=== PATIENT | female | born 1995 | race Caucasian/White ===

== ENCOUNTER 2017-09-15 07:11 | Day surgery (SDC) | payer OTHER, SELFPAY ==
[2017-09-15] VITALS (7 sets, daily range): BP systolic 118–137; BP diastolic 65–86; PULSE 60–72; RESP 14–18; TEMP 36.3–36.6; O2SAT 93–99; BMI 38.5
[2017-09-15 07:44] LABS: Internal QC Validated? YES +Cl - CLEAR BKGD; Pregnancy, Urine Negative Negative
--- NOTE | 2017-09-15 08:28 | DCINST_ITS ---
Discharge Diet: No Restrictions Discharge Activity: Return to Normal Activity, May not drive while taking narcotic pain medications., May Shower, Use Crutches May shower in (days): 2 Ice area for (Minutes): 20 Keep extremity elevated above heart level: Right Leg Additional Activity Instructions:: Activity as tolerated at this time. Range of motion as tolerated and crutches for comfort. Call your doctor if your incision/area has: Continuous Slow Oozing, Sudden Increased Bleeding, Increased Pain/ Swelling, Increased Redness, Foul Smelling Discharge, Swelling at the incision site Call your doctor if you observe: Fever of 101 or Higher, Coldness, Increased Pain, Numbness or Tingling, Change in Color, Inability to urinate, Inability to have a bowel movement, Using more than one pad per hour, Shortness of breath, Dizziness, Fainting spells, Swelling in the ankles, Chest pain, Prolonged hiccoughing, Increased palpitations (irregular heartbeat), Calf discomfort, Uncontrolled pain Suture Line Care: Avoid Pulling/Pushing, Avoid Pinching/Bending Change Dressing in (Days):: 2 Remove Dressing in (days):: 2 Cleanse incision/area with: Soap & Water Additional Dressing/Incision Instructions:: Replace dressing after showering. Wash hands prior to touching wounds. Allergies/Adverse Reactions: Allergies No Known Allergies Allergy (Verified 09/09/17 12:53) Medications to take at Discharge metformin 500 mg tablet 500 mg PO BID 07/22/17 sertraline 25 mg tablet 75 mg PO QHS 07/22/17 Docusate Sodium [Colace] 100 mg PO BID PRN PRN #10 cap 09/15/17 Hydrocodone Bitart/Apap 5-325 [Langeloth 5/325] 1 - 2 tablet PO Q6H PRN PRN #60 tablet 09/15/17 proMETHazine tablet [Phenergan] 25 mg PO Q4H PRN PRN #10 tab 09/15/17 The following prescriptions were given: proMETHazine tablet [Phenergan] 25 mg PO Q4H PRN PRN #10 tab PRN Reason: Nausea Hydrocodone Bitart/Apap 5-325 [Langeloth 5/325] 1 - 2 tablet PO Q6H PRN PRN #60 tablet PRN Reason: Pain Docusate Sodium [Colace] 100 mg PO BID PRN PRN #10 cap PRN Reason: Constipation Primary Care Physician: Christina Millan [Primary Care Provider] - Please Follow Up With: Anthony Cage DO When: call [facility] for appt for 2 weeks Proposed Discharge Date: 09/15/17
--- NOTE | 2017-09-15 08:30 | OP.PN_ITS ---
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
[2017-09-15] MEDS: Cefazolin 2 GM in 0.9% Normal Saline 100 ML IV (09:01)
--- NOTE | 2017-09-15 09:55 | PCM.OPRPT ---
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 Having failed conservative measures to include NSAIDs activity modifications physical therapy and injections patient elected for operative intervention. Patient was counseled consented for the aforementioned procedure. She was met in the holding area with a right lower extremity was marked and identified by the orthopedic surgeon. Patient was taken to the operating room in satisfactory condition where a timeout took place to place to identify patient up procedure limb. Patient received 2 g of Ancef. She had a well-placed tourniquet right proximal thigh. She was then prepped and draped in usual fashion. Right lower extremity was elevated Esmarch used for exsanguination and tourniquet was increased to 250 mmHg for roughly 18 minutes. Anterolateral portal was established we entered the intra-articular space. There was no return effusion. Patient had no loose bodies to the suprapatellar pouch. Her patella was otherwise pristine. She had no chondromalacia to the trochlea. Removed the lateral gutter there was no loose bodies and normal popliteal hiatus. Then moved in the medial compartment established anteromedial portal. Medial compartment showed no meniscal pathology and a normal flanked sign. Patient had good firm cartilage upon probing. Central compartment showed the ACL and PCL are present be pristine. The leg was then brought in a [id number] position in the lateral compartment evaluated. She had no chondral injury identified. She did have a radial tear at the 9 o'clock position to her partial discoid meniscus. It was subsequent mechanically debrided using a shaver and meniscal biters to a stable rim. Minimal saucerization was required based on her meniscus variant. At that point time the scope was retracted portal sites were closed with 3-0 nylon she was then injected with 30 cc of Marcaine solution at 0.25% without epinephrine around the portal sites. She was then dressed in usual fashion to include Xeroform 4 x 4's Kerlix roll ABDs and Mark wrap. Tourniquet was let down after roughly 18 minutes. I was called available time during our procedure. We had no drains or complications and no implants. Patient will follow the knee arthroscopy protocol from [facility] [place]. Patient will follow-up in 2 weeks. Any major issues return. 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
[2017-09-15] MEDS: Ketorolac 30 MG/ML Syringe IV (09:56)
--- NOTE | 2017-09-15 09:58 | OP.PCM_ITS ---
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 Having failed conservative measures to include NSAIDs activity modifications physical therapy and injections patient elected for operative intervention. Patient was counseled consented for the aforementioned procedure. She was met in the holding area with a right lower extremity was marked and identified by the orthopedic surgeon. Patient was taken to the operating room in satisfactory condition where a timeout took place to place to identify patient up procedure limb. Patient received 2 g of Ancef. She had a well-placed tourniquet right proximal thigh. She was then prepped and draped in usual fashion. Right lower extremity was elevated Esmarch used for exsanguination and tourniquet was increased to 250 mmHg for roughly 18 minutes. Anterolateral portal was established we entered the intra-articular space. There was no return effusion. Patient had no loose bodies to the suprapatellar pouch. Her patella was otherwise pristine. She had no chondromalacia to the trochlea. Removed the lateral gutter there was no loose bodies and normal popliteal hiatus. Then moved in the medial compartment established anteromedial portal. Medial compartment showed no meniscal pathology and a normal flanked sign. Patient had good firm cartilage upon probing. Central compartment showed the ACL and PCL are present be pristine. The leg was then brought in a [id number] position in the lateral compartment evaluated. She had no chondral injury identified. She did have a radial tear at the 9 o'clock position to her partial discoid meniscus. It was subsequent mechanically debrided using a shaver and meniscal biters to a stable rim. Minimal saucerization was required based on her meniscus variant. At that point time the scope was retracted portal sites were closed with 3-0 nylon she was then injected with 30 cc of Marcaine solution at 0.25% without epinephrine around the portal sites. She was then dressed in usual fashion to include Xeroform 4 x 4's Kerlix roll ABDs and Mark wrap. Tourniquet was let down after roughly 18 minutes. I was called available time during our procedure. We had no drains or complications and no implants. Patient will follow the [facility] arthroscopy protocol from [facility]. Patient will follow-up in 2 weeks. Any major issues return. 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
[2017-09-15] MEDS: HYDROcodone Bitartrate/Apap 5/325 Tablet PO (11:13)
== END 2017-09-15 11:59 | disposition home or self-care (01) ==
LOC: SDC 07:13 → AC 07:14
PROVIDERS: Anesthesiology; Family Provider Specialist; PCP Specialist; Visit Provider Orthopaedic Surgery
PROC: (CPT 29870; principal; 2017-09-15 08:30)
DX: S83.281A Other tear of lateral meniscus, current injury, right knee, initial encounter (principal); W01.0XXA Fall on same level from slipping, tripping and stumbling without subsequent striking against object, initial encounter; Y93.9 Activity, unspecified; Y92.9 Unspecified place or not applicable; F32.9 Major depressive disorder, single episode, unspecified; E28.2 Polycystic ovarian syndrome; Z79.899 Other long term (current) drug therapy; Z79.84 Long term (current) use of oral hypoglycemic drugs; G47.30 Sleep apnea, unspecified; Q68.6 Discoid meniscus
CPT/HCPCS: 29881; 81025; J7120; J2405